=== PATIENT | female | born 1955 | race Caucasian/White ===

== ENCOUNTER → 2017-12-06 07:03 | Outpatient (CLI) | payer OTHER, SELFPAY ==
[2017-12-06 08:48] LABS: Hematocrit 39.4 % (36-46); Hemoglobin 13.5 g/dL (12.0-16.0); Mean Corpuscular HGB Conc 34.2 % (30-36); Mean Corpuscular Hemoglobin 30.9 PG (26-34); Mean Corpuscular Volume 90.3 fL (80-100); Platelet Count 283 X10^3/uL (150-400); Red Blood Cell Count 4.36 X10^6/uL (4.0-5.2); Red Cell Distribution Width 13.9 % (11.6-14.8); White Blood Cell Count 6.5 X10^3/uL (4.5-11.0)
[2017-12-06 09:00] LABS: Alanine Aminotransferase 30 IU/L (9-52); Albumin 4.4 g/dL (3.5-5.0); Albumin Globulin Ratio 1.5 (1.0-2.8); Alkaline Phosphatase 82 U/L (38-126); Aspartate Aminotransferase 23 IU/L (14-36); BUN Creatinine Ratio 21.4 (6-22); Bilirubin Total 0.5 mg/dL (0.2-1.3); Blood Urea Nitrogen 15 mg/dL (7-17); Calcium 9.3 mg/dL (8.4-10.2); Carbon Dioxide 27 mmol/L (22-32); Chloride 106 mmol/L (98-107); Estimated Glomerular Filt Rate > 60.0 mL/min (>60); Glucose 88 mg/dL (80-110); HEMOLYSIS < 15 (0-50); Potassium 3.9 mmol/L (3.4-5.1); Sodium 143 mmol/L (137-145); Total Protein 7.4 g/dL (6.3-8.2)
== END ==
PROVIDERS: Family Provider Family Medicine; PCP Family Medicine; Visit Provider Surgery
DX: I10 Essential (primary) hypertension (principal); E78.5 Hyperlipidemia, unspecified; M54.9 Dorsalgia, unspecified; F32.9 Major depressive disorder, single episode, unspecified
CPT/HCPCS: 36415; 80053; 85027

== ENCOUNTER → 2018-03-13 07:36 | Outpatient (CLI) | payer OTHER, SELFPAY ==
[2018-03-13 08:01] LABS: Hematocrit 38.8 % (36-46); Mean Corpuscular HGB Conc 33.5 % (30-36); Mean Corpuscular Hemoglobin 30.6 PG (26-34); Mean Corpuscular Volume 91.4 fL (80-100); Platelet Count 267 X10^3/uL (150-400); Red Blood Cell Count 4.25 X10^6/uL (4.0-5.2); Red Cell Distribution Width 14.5 % (11.6-14.8); White Blood Cell Count 6.8 X10^3/uL (4.5-11.0)
[2018-03-13 08:27] LABS: HEMOLYSIS < 15 (0-50); Iron 86 ug/dL (37-170)
[2018-03-13 08:31] LABS: Alanine Aminotransferase 50 IU/L (9-52); Albumin 4.5 g/dL (3.5-5.0); Albumin Globulin Ratio 1.5 (1.0-2.8); Alkaline Phosphatase 122 U/L (38-126); Aspartate Aminotransferase 35 IU/L (14-36); Bilirubin Total 0.3 mg/dL (0.2-1.3); Blood Urea Nitrogen 14 mg/dL (7-17); C-Reactive Protein Quant < 0.5 mg/dL (<1.0); Calcium 9.6 mg/dL (8.4-10.2); Carbon Dioxide 23 mmol/L (22-32); Chloride 109 mmol/L (98-107); Cholesterol 156 mg/dL (140-199); Estimated Glomerular Filt Rate > 60.0 mL/min (>60); Globulin 3.1 g/dL (1.7-4.1); Glucose 91 mg/dL (80-110); HDL Cholesterol 50 mg/dL (40-60); HEMOLYSIS < 15 (0-50); LDL Cholesterol Calculated 84 mg/dL (<100); Potassium 4.3 mmol/L (3.4-5.1); Sodium 142 mmol/L (137-145); Total Protein 7.6 g/dL (6.3-8.2); Triglycerides 108 mg/dL (35-150)
[2018-03-13 08:38] LABS: Percent Iron Saturation 25 % (15-50); Total Iron Binding Capacity 346 ug/dL (265-497); Transferrin 281 mg/dL (206-381)
[2018-03-13 08:45] LABS: Vitamin D 25 Hydroxy (D3) 42.7 ng/mL (30.0-100.0)
[2018-03-13 09:04] LABS: Ferritin 22.9 ng/mL (11.1-264)
[2018-03-13 09:34] LABS: Folate 6.8 ng/mL (2.76-20.0); Vitamin B12 679 pg/mL (239-931)
[2018-03-14 15:25] LABS: C Peptide 1.35 ng/mL (0.80-3.85)
[2018-03-15 03:37] LABS: Vitamin A 51 mcg/dL (38-98)
[2018-03-16 18:00] LABS: Vitamin B1 149 nmol/L (78-185)
== END ==
PROVIDERS: Family Provider Family Medicine; PCP Family Medicine; Visit Provider Surgery
DX: K91.2 Postsurgical malabsorption, not elsewhere classified (principal)
CPT/HCPCS: 36415; 80053; 80061; 82306; 82607; 82728; 82746; 83540; 83550; 84425; 84590; 84681; 85027; 86140

== ENCOUNTER → 2018-03-31 07:46 | Outpatient (CLI) | payer OTHER, SELFPAY ==
--- NOTE | 2018-03-31 | DI.MG.S_ITS ---
BILATERAL DIGITAL SCREENING MAMMOGRAM 3D/2D WITH CAD: 03/31/2018 CLINICAL: Routine screening. Family history of breast cancer. Comparison is made to exams dated: 03/30/2017 mammogram, 03/16/2016 mammogram, and 02/26/2015 mammogram - [facility]. There are scattered fibroglandular elements in both breasts. Current study was also evaluated with a Computer Aided Detection (CAD) system. No significant masses, calcifications, or other findings are seen in either breast. There has been no significant interval change. IMPRESSION: NEGATIVE There is no mammographic evidence of malignancy. A 1 year screening mammogram is recommended. This exam was interpreted at Station ID: [id number]. NOTE: For mammograms, a report in lay terms will be sent to the patient. Approximately 15% of breast malignancies will not be visualized mammographically. In the management of a palpable breast mass, a negative mammogram must not discourage biopsy of a clinically suspicious lesion. Electronically Signed By: Yolanda louis/marita:03/31/2018 08:51:59 letter sent: Normal Exam ACR BI-RADS Category 1: Negative 3341F
== END ==
PROVIDERS: Family Provider Family Medicine; PCP Family Medicine; Visit Provider Family Medicine
DX: Z12.31 Encounter for screening mammogram for malignant neoplasm of breast (principal); Z80.3 Family history of malignant neoplasm of breast
CPT/HCPCS: 77063; 77067

== ENCOUNTER → 2019-04-02 10:50 | Outpatient (CLI) | payer OTHER, SELFPAY ==
--- NOTE | 2019-04-02 | DI.MG.S_ITS ---
BILATERAL DIGITAL SCREENING MAMMOGRAM 3D/2D WITH CAD: 04/02/2019 CLINICAL: Routine screening. Family history of breast cancer. Comparison is made to exams dated: 03/31/2018 mammogram, 03/30/2017 mammogram, and 03/16/2016 mammogram - [facility]. There are scattered fibroglandular elements in both breasts. Current study was also evaluated with a Computer Aided Detection (CAD) system. No significant masses, calcifications, or other findings are seen in either breast. There has been no significant interval change. IMPRESSION: NEGATIVE There is no mammographic evidence of malignancy. A 1 year screening mammogram is recommended. This exam was interpreted at Station ID: [id number]. NOTE: For mammograms, a report in lay terms will be sent to the patient. Approximately 15% of breast malignancies will not be visualized mammographically. In the management of a palpable breast mass, a negative mammogram must not discourage biopsy of a clinically suspicious lesion. Electronically Signed By: Tono bourne/marita:04/02/2019 12:05:17 letter sent: Normal Exam ACR BI-RADS Category 1: Negative 3341F
== END ==
PROVIDERS: PCP Student in an Organized Health Care Education/Training Program; Visit Provider Student in an Organized Health Care Education/Training Program
DX: Z12.31 Encounter for screening mammogram for malignant neoplasm of breast (principal); Z80.3 Family history of malignant neoplasm of breast
CPT/HCPCS: 77063; 77067

== ENCOUNTER → 2020-04-03 07:40 | Outpatient (CLI) | payer OTHER, SELFPAY ==
--- NOTE | 2020-04-03 | DI.MG.S_ITS ---
BILATERAL DIGITAL SCREENING MAMMOGRAM 3D/2D WITH CAD: 04/03/2020 CLINICAL: Routine screening. Family history of breast cancer. Comparison is made to exams dated: 04/02/2019 mammogram, 03/31/2018 mammogram, and 03/30/2017 mammogram - [facility]. There are scattered fibroglandular elements in both breasts. Current study was also evaluated with a Computer Aided Detection (CAD) system. No significant masses, calcifications, or other findings are seen in either breast. There has been no significant interval change. IMPRESSION: NEGATIVE There is no mammographic evidence of malignancy. A 1 year screening mammogram is recommended. This exam was interpreted at Station ID: [id number]. NOTE: For mammograms, a report in lay terms will be sent to the patient. Approximately 15% of breast malignancies will not be visualized mammographically. In the management of a palpable breast mass, a negative mammogram must not discourage biopsy of a clinically suspicious lesion. Electronically Signed By: Babak purvis/marita:04/03/2020 08:46:04 letter sent: Normal Exam ACR BI-RADS Category 1: Negative 3341F
== END ==
PROVIDERS: PCP Student in an Organized Health Care Education/Training Program; Referring Provider Student in an Organized Health Care Education/Training Program; Visit Provider Student in an Organized Health Care Education/Training Program
DX: Z12.31 Encounter for screening mammogram for malignant neoplasm of breast (principal); Z80.3 Family history of malignant neoplasm of breast
CPT/HCPCS: 77063; 77067

== ENCOUNTER → 2020-06-05 08:18 | Outpatient (CLI) | payer OTHER, SELFPAY ==
[2020-06-05] MEDS: COVID-19 VACC #1, MRNA(MOD) 100 MCG/0.5 ML VIAL IM (08:24)
== END ==
PROVIDERS: PCP Student in an Organized Health Care Education/Training Program; Visit Provider Internal Medicine
DX: Z23 Encounter for immunization (principal)
CPT/HCPCS: 0011A; 91301

== ENCOUNTER → 2020-07-03 07:54 | Outpatient (CLI) | payer OTHER, SELFPAY ==
[2020-07-03] MEDS: COVID-19 VACC #2, MRNA(MOD) 100 MCG/0.5 ML VIAL IM (07:58)
== END ==
PROVIDERS: PCP Student in an Organized Health Care Education/Training Program; Visit Provider Internal Medicine
DX: Z23 Encounter for immunization (principal)
CPT/HCPCS: 0012A; 91301

== ENCOUNTER → 2020-11-26 14:09 | Outpatient (CLI) | payer OTHER, SELFPAY ==
--- NOTE | 2020-11-26 | DI.RAD.S_ITS ---
PROCEDURE: XR TIBIA FIBULA LT 2V INDICATIONS: Pain in left leg TECHNIQUE: 2 views of the tibia and fibula were acquired. COMPARISON: None. FINDINGS: Bones: Total right knee arthroplasty. Femoral component incompletely visualized. Tibial component unremarkable with no evidence of hardware failure or loosening. No fractures or dislocations. No suspicious bony lesions. Soft tissues: No suspicious soft tissue calcifications or masses. IMPRESSION: No evidence acute bony abnormality of the left tibia and fibula. Dictated by: Dayo Li M.D. on 11/26/2020 at 17:08 Approved by: Dayo Li M.D. on 11/26/2020 at 17:09
--- NOTE | 2020-11-26 | DI.RAD.S_ITS ---
PROCEDURE: XR ANKLE LT MIN 3V INDICATIONS: Pain in left leg TECHNIQUE: 3 views of the ankle were acquired. COMPARISON: None. FINDINGS: Bones: No fractures or dislocations. Ankle mortise is normally aligned. Mild tibiotalar and subtalar joint osteoarthritic changes are seen. Well-defined plantar and dorsal calcaneal enthesophytes are seen. No suspicious bony lesions. Soft tissues: Mild ankle soft tissue swelling is seen. No tibiotalar joint effusion. Achilles tendon appears normal. IMPRESSION: No ankle fracture or dislocation. Ankle and hindfoot joint osteoarthritis. Well-defined calcaneal enthesophytes. Mild ankle soft tissue swelling. Dictated by: Fahad Henriquez M.D. on 11/26/2020 at 15:40 Approved by: Fahad Henriquez M.D. on 11/26/2020 at 15:41
== END ==
PROVIDERS: PCP Student in an Organized Health Care Education/Training Program; Referring Provider Student in an Organized Health Care Education/Training Program; Visit Provider Student in an Organized Health Care Education/Training Program
DX: M79.605 Pain in left leg (principal); M25.872 Other specified joint disorders, left ankle and foot; M19.072 Primary osteoarthritis, left ankle and foot
CPT/HCPCS: 73590; 73610

== ENCOUNTER → 2021-03-28 08:04 | Outpatient (CLI) | payer OTHER, SELFPAY ==
--- NOTE | 2021-03-28 08:25 | DI.MG.S_ITS ---
Procedure: MM screening mammo BI BILATERAL DIGITAL SCREENING MAMMOGRAM 3D/2D WITH CAD: 03/28/2021 CLINICAL: Routine screening. Family history of breast cancer. Comparison is made to exams dated: 04/03/2020 mammogram, 04/02/2019 mammogram, and 03/31/2018 mammogram - . There are scattered fibroglandular elements in both breasts. Current study was also evaluated with a Computer Aided Detection (CAD) system. No significant masses, calcifications, or other findings are seen in either breast. There has been no significant interval change. IMPRESSION: NEGATIVE There is no mammographic evidence of malignancy. A 1 year screening mammogram is recommended. This exam was interpreted at Station ID: [id number]. NOTE: For mammograms, a report in lay terms will be sent to the patient. Approximately 15% of breast malignancies will not be visualized mammographically. In the management of a palpable breast mass, a negative mammogram must not discourage biopsy of a clinically suspicious lesion. Electronically Signed By: Babak purvis/marita:03/30/2021 08:26:28 letter sent: Normal Exam ACR BI-RADS Category 1: Negative 3341F
== END ==
PROVIDERS: PCP Student in an Organized Health Care Education/Training Program; Referring Provider Student in an Organized Health Care Education/Training Program; Visit Provider Student in an Organized Health Care Education/Training Program
DX: Z12.31 Encounter for screening mammogram for malignant neoplasm of breast (principal); Z80.3 Family history of malignant neoplasm of breast
CPT/HCPCS: 77063; 77067

== ENCOUNTER → 2022-03-31 07:25 | Outpatient (CLI) | payer OTHER, SELFPAY ==
--- NOTE | 2022-03-31 | DI.MG.S_ITS ---
BILATERAL DIGITAL SCREENING MAMMOGRAM 3D/2D WITH CAD: 03/31/2022 CLINICAL: Routine screening. Family history of breast cancer. Comparison is made to exams dated: 03/28/2021 mammogram, 04/03/2020 mammogram, 04/02/2019 mammogram, and 03/31/2018 mammogram - [facility]. There are scattered areas of fibroglandular density in both breasts (category b / 25%-50% glandular tissue). Current study was also evaluated with a Computer Aided Detection (CAD) system. There are benign post operative findings in the left breast. No significant masses, calcifications, or other findings are seen in either breast. There has been no significant interval change. IMPRESSION: BENIGN There is no mammographic evidence of malignancy. A 1 year screening mammogram is recommended. Based on the Tyrer Cuzick model (a risk assessment model) the patient's lifetime risk is 6.8% and her 10 year risk is 3.1%. According to the ACR, ACS, and NCCN guidelines, an annual breast MRI exam along with mammogram is recommended if the patient's lifetime risk is 20% or greater. This exam was interpreted at Station ID: [id number]. NOTE: For mammograms, a report in lay terms will be sent to the patient. Approximately 15% of breast malignancies will not be visualized mammographically. In the management of a palpable breast mass, a negative mammogram must not discourage biopsy of a clinically suspicious lesion. Electronically Signed By: Bao lopez/marita:03/31/2022 08:11:20 letter sent: Normal Exam ACR BI-RADS Category 2: Benign Finding(s) 3342F
== END ==
PROVIDERS: PCP Family Medicine; Referring Provider Family Medicine; Visit Provider Family Medicine
DX: Z12.31 Encounter for screening mammogram for malignant neoplasm of breast (principal); Z80.3 Family history of malignant neoplasm of breast
CPT/HCPCS: 77063; 77067

== ENCOUNTER → 2022-05-10 11:03 | Outpatient (CLI) | payer OTHER, SELFPAY ==
[2022-05-10 11:50] LABS: Add Manual Diff / Slide Review NO; Basophils Absolute Auto 0 /uL (0-100); Basophils Percent Auto 0.7 % (0-2); Eosinophils Absolute Auto 0 /uL (0-450); Eosinophils Percent Auto 0.5 % (2-4); Hematocrit 27.2 % (36-46); Hemoglobin 8.7 g/dL (12.0-16.0); Lymphocytes Absolute Auto 2000 /uL (1100-4500); Lymphocytes Percent Auto 36.7 % (25-40); Mean Corpuscular Hemoglobin 26.6 PG (26-34); Mean Corpuscular Volume 83.2 fL (80-100); Monocytes Absolute Auto 300 /uL (0-900); Monocytes Percent Auto 5.8 % (3-14); Neutrophils Absolute Auto 3000 /uL (1500-7000); Neutrophils Percent Auto 56.3 % (50-75); Platelet Count 257 X10^3/uL (150-400); Red Blood Cell Count 3.27 X10^6/uL (4.0-5.2); Red Cell Distribution Width 15.5 % (11.6-14.8); White Blood Cell Count 5.4 X10^3/uL (4.5-11.0)
[2022-05-10 12:03] LABS: HEMOLYSIS < 15 (0-50); Iron 37 ug/dL (37-170)
[2022-05-10 12:04] LABS: Alanine Aminotransferase 53 IU/L (<35); Albumin 4.4 g/dL (3.5-5.0); Albumin Globulin Ratio 1.4 (1.0-2.8); Alkaline Phosphatase 108 U/L (38-126); Aspartate Aminotransferase 41 IU/L (14-36); BUN Creatinine Ratio 15.2 (6-22); Bilirubin Total 0.5 mg/dL (0.2-1.3); Blood Urea Nitrogen 10 mg/dL (7-17); Calcium 8.6 mg/dL (8.4-10.2); Carbon Dioxide 25 mmol/L (22-32); Chloride 104 mmol/L (98-107); Cholesterol 200 mg/dL (140-199); Estimated Glomerular Filt Rate > 60 mL/min (>60); Globulin 3.1 g/dL (1.7-4.1); Glucose 82 mg/dL (80-110); HDL Cholesterol 71 mg/dL (40-60); HEMOLYSIS < 15 (0-50); LDL Cholesterol Calculated 114 mg/dL (<100); Potassium 3.8 mmol/L (3.4-5.1); Sodium 138 mmol/L (137-145); Total Protein 7.5 g/dL (6.3-8.2); Triglycerides 77 mg/dL (35-150)
[2022-05-10 12:15] LABS: Percent Iron Saturation 7 % (15-50); Total Iron Binding Capacity 553 ug/dL (265-497); Transferrin 381 mg/dL (206-381)
[2022-05-10 12:21] LABS: Vitamin D 25 Hydroxy (D3) 14.3 ng/mL (30.0-100.0)
[2022-05-10 12:22] LABS: Free T3, Triiodothyronine Free 3.27 pg/mL (2.77-5.27); Free T4, Direct Thyroxine 1.32 ng/dL (0.78-2.19)
[2022-05-10 12:36] LABS: Thyroid Stimulating Hormone 1.11 uIU/mL (0.47-4.68)
[2022-05-10 13:11] LABS: Folate 12.9 ng/mL (2.76-20.0); Vitamin B12 618 pg/mL (239-931)
[2022-05-10 16:46] LABS: HIV 1 & 2 Ab/Ag 4th Gen Combo NEGATIVE (NEGATIVE); Hep C Virus Ab w/Reflex Quant NEGATIVE s/c (NEGATIVE)
[2022-05-11 22:32] LABS: Zinc 62 ug/dL (44-115)
[2022-05-13 13:47] LABS: Calcium 9.1 mg/dL (8.7-10.3); Parathyroid Hormone, Intact 109 pg/mL (15-65)
[2022-05-13 15:28] LABS: Selenium 94 ug/L (93-198)
[2022-05-14 18:59] LABS: Vitamin B1 139.1 nmol/L (66.5-200.0)
[2022-05-19 18:12] LABS: Alpha-Tocopherol 12.8 mg/L (9.0-29.0); Gamma-Tocopherol 0.2 mg/L (0.5-4.9); Vitamin A 42.6 ug/dL (22.0-69.5)
== END ==
PROVIDERS: PCP Nurse Practitioner; Referring Provider Nurse Practitioner; Visit Provider Nurse Practitioner
DX: Z00.00 Encounter for general adult medical examination without abnormal findings (principal); Z98.84 Bariatric surgery status; Z11.59 Encounter for screening for other viral diseases; Z11.4 Encounter for screening for human immunodeficiency virus [HIV]
CPT/HCPCS: 36415; 80053; 80061; 82306; 82310; 82525; 82607; 82746; 83540; 83550; 83970; 84255; 84425; 84439; 84443; 84446; 84481; 84590; 84630; 85025; 86803; 87389

== ENCOUNTER 2022-05-28 10:55 | Day surgery (SDC) | payer OTHER, SELFPAY ==
--- NOTE | 2022-05-28 | PATH_ITS ---
[facility] Accession Number: [id number] No. of containers..01 Tissue . 01 Material submitted: . gastrointestinal site - GASTRIC RANDOM BIOPSY . 01 Clinical history: . R/O H. PYLORI . 01 Diagnosis: Gastric, Biopsy: Gastric mucosa with mild chronic inflammation. No Helicobacter pylori organisms identified on immunohistochemical evaluation. No intestinal metaplasia, dysplasia, or malignancy identified. . MRV 06/01/2022 1354 Local . 01 Electronically signed: . Janine Vo MD, Pathologist NPI- [id number] . 01 Gross description: . GASTRIC RANDOM BIOPSY: Received in formalin is 1 fragment(s) of nicholson, soft tissue measuring 0.3 x 0.3 x 0.2 cm submitted entirely in 1 cassette(s) /KARINA 05/31/20222022 Local . 01 Microscopic: . An immunohistochemical stain was performed to evaluate for Helicobacter organisms and is negative. The control stain showed appropriate reactivity. . * This test was developed and its performance characteristics determined by [facility]. It has not been cleared or approved by the U.S. Food and Drug Administration. The FDA has determined that such clearance or approval is not necessary. This test is used for clinical purposes. It should not be regarded as investigational or for research. . 01 Pathologist provided ICD-10: K29.70 . 01 CPT . 458387, E28823 Specimen Comment: A courtesy copy of this report has been sent to [facility]ology Performed at: 01 [facility] [address] [place] [address], [place], [place] [id number] MD Tono Vergara MD Phone: [phone]
[2022-05-28] MEDS: LACTATED RINGERS 1,000 ML 120 ML IV ×2 (11:31→14:48)
[2022-05-28 11:48] VITALS: BP 133/90; PULSE 83; RESP 16; TEMP 36.5; O2SAT 96; BMI 35.5
[2022-05-28 12:12] VITALS: BMI 35.5
--- NOTE | 2022-05-28 12:56 | PM.HP.1 ---
History of Present Illness History of Present Illness Date Patient Seen: 05/28/22 Chief complaint: EGD/Colonoscopy Narrative: Please see H and P dated from my office 04/20/2022. Patient states that there have not been significant changes since that time. She presents for EGD and colonoscopy because of anemia. She has had a colonoscopy in the past. Still feeling tired and also getting vitamin infusions as well. Patient History Medical History (Updated 05/20/22 @ 16:14 by DOTTY Barboza) Arthritis (~2007) Elevated parathyroid hormone Foot pain (~2019) Surgical History Anesthesia History of cholecystectomy History of gastric bypass History of knee surgery S/P laparoscopic sleeve gastrectomy Family & Social History Family History Father No problems noted. Brother Cancer Brother Diabetes mellitus History of heart disease Hypertension Hyperlipidemia Mental health problem Grandfather Kidney disorder Grandmother No problems noted. Social History: household members spouse Tobacco & Substance use: Smoking Status Former smoker alcohol intake current alcohol intake frequency holiday/special occasion Substance Use Type does not use Meds Home Medications and Allergies Home Medications Medication Instructions Recorded Confirmed Type alprazolam 0.5 mg tablet 0.5 mg PO BID PRN panic attacks 05/10/22 05/28/22 Rx #20 tabs calcium carbonate 600 mg calcium 600 mg PO DAILY 05/10/22 05/28/22 History (1,500 mg) tablet (Calcium) doxepin 100 mg capsule 150 mg PO HS #0 caps 05/10/22 05/28/22 History gabapentin 300 mg capsule 600 mg PO BID 05/10/22 05/28/22 History vitamin B complex (B 1 tab PO DAILY 05/10/22 05/28/22 History Complex-Vitamin B12 tablet) ferumoxytol 510 mg/17 mL (30 510 mg (17 mL) IV Q3D 2 doses #17 05/11/22 05/28/22 Rx mg/mL) intravenous solution mL (Feraheme) cholecalciferol (vitamin D3) 50 50 mcg PO DAILY #30 caps 05/18/22 05/28/22 Rx mcg (2,000 unit) capsule escitalopram oxalate 20 mg tablet 40 mg PO QDAY #180 tabs 05/19/22 05/28/22 Rx (Lexapro) semaglutide 1 mg/dose (4 mg/3 mL) 1 mg (0.75 mL) SUBCUT QWEEK #6 mL 05/19/22 05/28/22 Rx subcutaneous pen injector (Ozempic) Allergies Allergy/AdvReac Type Severity Reaction Status Date / Time aspirin AdvReac Severe GI BLEED Verified 05/28/22 11:43 codeine AdvReac Intermediate GI BLEED Verified 05/28/22 11:43 naproxen AdvReac Intermediate GI BLEED Verified 05/28/22 11:43 Exam Vital Signs (past 8 hours): - 05/28/22 11:48 Temperature 97.7 F Pulse Rate 83 Respiratory Rate 16 Blood Pressure 133/90 Pulse Oximetry 96 Oxygen Delivery Method Room Air Oxygen Delivery Method Room Air Const General: cooperative, healthy appearing and comfortable HENMT Head: normal to inspection Eyes General: appearance normal, both eyes and all related structures Resp Effort & Inspection: normal respiratory effort and able to speak in complete sentences GI Palpation: soft and No tender Assessment & Plan Assessment and plan (1) Anemia: Qualifiers: Anemia type: iron deficiency Iron deficiency anemia type: unspecified iron deficiency Qualified Code(s): D50.9 - Iron deficiency anemia, unspecified Status: Acute (2) History of gastric bypass: Status: Acute Assessment & Plan narrative: I reiterated the risks benefits and alternatives of EGD/colonoscopy that was discussed in the office. Patient understands these risks benefits and alternatives and would like to proceed. I did discuss an being unable to view the gastric remnant that was bypassed and briefly went into some procedures that are possible to evaluate this portion of the GI tract that has been excluded with a gastric bypass. These include laparoscopic assisted endoscopy or an endoscopic ultrasound assisted entry into that pouch.(EUS-directed transgastric approach aka EGDE procedure)
[2022-05-28 14:35] VITALS: BP 116/74; PULSE 84; RESP 15; TEMP 36.1; O2SAT 96
[2022-05-28 14:40] VITALS: BP 87/69; PULSE 86; RESP 14; O2SAT 97
[2022-05-28 14:43] VITALS: BP 120/74; PULSE 79; RESP 17; O2SAT 96
[2022-05-28 14:45] VITALS: BP 126/72; PULSE 78; RESP 14; O2SAT 99
--- NOTE | 2022-05-28 14:51 | SUR.PHASEI ---
Patient with dry cough S/P egd but no difficulty swallowing juice; lungs cta; abdomen soft and non-distended. VSS.
[2022-05-28 14:56] VITALS: BP 137/87; PULSE 73; RESP 24; O2SAT 98
--- NOTE | 2022-05-28 19:59 | PM.OP.EC ---
Operative Date/Time/Diagnoses Date of procedure: 05/28/22 Pre-op diagnosis: Anemia Post-op diagnosis: same Procedure & Clinicians Study performed: EGD and biopsies, colonoscopy Same procedure as scheduled: Yes Indications: Anemia Surgeon: Cheryl García Procedure Notes Procedure in detail: Patient was taken to the endoscopy suite and placed supine on the operating room table. A time-out was performed. With the help of anesthesiology provider conscious sedation was induced. Bite block was placed. EGD scope was introduced into the mouth and easily placed into the esophagus. This was advanced into the stomach. A small pouch of remaining stomach was seen. The scope was advanced towards the pylorus. There was some mild possible erythema in this area and a gastric biopsy was obtained. The scope was then advanced into the duodenum. The scope was advanced until the junction of the Tawanna limb with the biliopancreatic limb was seen. A photograph was obtained. There was no evidence of bleeding in any of these areas. Next attention was turned to the colonoscopy. A digital rectal exam was performed external hemorrhoids were appreciated. The colonoscope was introduced into the anal canal and advanced through to the cecum. There were some areas where the prep was poor and the [place] bowel prep score was between a 1 and 2. I do think it was an adequate exam for the purpose of working up anemia and no obvious cause of anemia was seen. The withdrawal time from the cecum was 14 minutes. Photographs of the appendiceal orifice and retroflexion were obtained. There were a few scattered diverticula but no polyps were appreciated. Specimen(s): none sent Complications: none Impression: No obvious source of anemia is identified. No polyps were seen.
== END 2022-05-28 15:05 | disposition home or self-care (01) ==
PROVIDERS: PCP Nurse Practitioner; Referring Provider Surgery; Visit Provider Surgery
PROC: 0DJ08ZZ Inspection of Upper Intestinal Tract, Via Natural or Artificial Opening Endoscopic (ICD-10-PCS; CPT 43235; principal; 2022-05-28 12:15)
PROC: 0DJD8ZZ Inspection of Lower Intestinal Tract, Via Natural or Artificial Opening Endoscopic (ICD-10-PCS; CPT 45378; 2022-05-28 12:15)
DX: D50.9 Iron deficiency anemia, unspecified (principal); Z98.84 Bariatric surgery status; K57.30 Diverticulosis of large intestine without perforation or abscess without bleeding
CPT/HCPCS: 45378; 43239; 43235; J2704

== ENCOUNTER → 2022-06-29 07:11 | Outpatient (CLI) | payer OTHER, SELFPAY ==
[2022-06-29 08:31] LABS: Add Manual Diff / Slide Review NO; Basophils Absolute Auto 0 /uL (0-100); Basophils Percent Auto 0.8 % (0-2); Eosinophils Absolute Auto 100 /uL (0-450); Eosinophils Percent Auto 1.5 % (2-4); Hematocrit 34.6 % (36-46); Hemoglobin 11.2 g/dL (12.0-16.0); Lymphocytes Absolute Auto 1600 /uL (1100-4500); Mean Corpuscular HGB Conc 32.4 % (30-36); Mean Corpuscular Volume 86.5 fL (80-100); Monocytes Absolute Auto 200 /uL (0-900); Monocytes Percent Auto 5.2 % (3-14); Neutrophils Absolute Auto 2600 /uL (1500-7000); Neutrophils Percent Auto 56.5 % (50-75); Platelet Count 257 X10^3/uL (150-400); Red Cell Distribution Width 23.1 % (11.6-14.8); White Blood Cell Count 4.5 X10^3/uL (4.5-11.0)
[2022-06-29 08:45] LABS: Anisocytosis 1+; Poikilocytosis 1+
[2022-06-29 08:56] LABS: HEMOLYSIS < 15 (0-50); Iron 102 ug/dL (37-170)
[2022-06-29 09:10] LABS: Percent Iron Saturation 30 % (15-50); Total Iron Binding Capacity 338 ug/dL (265-497); Transferrin 251 mg/dL (206-381)
[2022-07-01 09:48] LABS: Calcium 8.8 mg/dL (8.7-10.3); Parathyroid Hormone, Intact 86 pg/mL (15-65)
== END ==
PROVIDERS: PCP Nurse Practitioner; Referring Provider Nurse Practitioner; Visit Provider Nurse Practitioner
DX: Z01.83 Encounter for blood typing (principal); E34.9 Endocrine disorder, unspecified; D50.9 Iron deficiency anemia, unspecified
CPT/HCPCS: 36415; 82310; 83540; 83550; 83970; 85025; 86900; 86901

== ENCOUNTER → 2022-08-10 07:06 | Outpatient (CLI) | payer OTHER, SELFPAY ==
[2022-08-10 08:21] LABS: Add Manual Diff / Slide Review NO; Basophils Absolute Auto 0 /uL (0-100); Basophils Percent Auto 0.6 % (0-2); Eosinophils Absolute Auto 0 /uL (0-450); Eosinophils Percent Auto 0.8 % (2-4); Hematocrit 37.1 % (36-46); Hemoglobin 12.4 g/dL (12.0-16.0); Lymphocytes Absolute Auto 2000 /uL (1100-4500); Lymphocytes Percent Auto 34.1 % (25-40); Mean Corpuscular HGB Conc 33.5 % (30-36); Mean Corpuscular Hemoglobin 29.8 PG (26-34); Mean Corpuscular Volume 88.9 fL (80-100); Monocytes Absolute Auto 300 /uL (0-900); Monocytes Percent Auto 5.1 % (3-14); Neutrophils Absolute Auto 3400 /uL (1500-7000); Neutrophils Percent Auto 59.4 % (50-75); Platelet Count 226 X10^3/uL (150-400); Red Blood Cell Count 4.17 X10^6/uL (4.0-5.2); Red Cell Distribution Width 21.4 % (11.6-14.8); White Blood Cell Count 5.7 X10^3/uL (4.5-11.0)
[2022-08-10 08:38] LABS: Anisocytosis 1+
[2022-08-10 08:41] LABS: Alanine Aminotransferase 73 IU/L (<35); Albumin 4.2 g/dL (3.5-5.0); Albumin Globulin Ratio 1.7 (1.0-2.8); Alkaline Phosphatase 100 U/L (38-126); Aspartate Aminotransferase 43 IU/L (14-36); BUN Creatinine Ratio 21.8 (6-22); Bilirubin Total 0.3 mg/dL (0.2-1.3); Blood Urea Nitrogen 17 mg/dL (7-17); Calcium 8.8 mg/dL (8.4-10.2); Carbon Dioxide 23 mmol/L (22-32); Chloride 108 mmol/L (98-107); Estimated Glomerular Filt Rate > 60 mL/min (>60); Globulin 2.5 g/dL (1.7-4.1); Glucose 85 mg/dL (80-110); HEMOLYSIS < 15 (0-50); Potassium 4.4 mmol/L (3.4-5.1); Sodium 139 mmol/L (137-145); Total Protein 6.7 g/dL (6.3-8.2)
[2022-08-10 13:06] LABS: HEMOLYSIS < 15 (0-50); Iron 66 ug/dL (37-170)
[2022-08-10 13:17] LABS: Transferrin 275 mg/dL (206-381)
[2022-08-10 13:24] LABS: Percent Iron Saturation 18 % (15-50); Total Iron Binding Capacity 366 ug/dL (265-497)
[2022-08-13 08:44] LABS: Calcium 8.9 mg/dL (8.7-10.3); Parathyroid Hormone, Intact 99 pg/mL (15-65)
== END ==
PROVIDERS: PCP Nurse Practitioner; Referring Provider Nurse Practitioner; Visit Provider Nurse Practitioner
DX: D50.9 Iron deficiency anemia, unspecified (principal); Z98.84 Bariatric surgery status; E34.9 Endocrine disorder, unspecified
CPT/HCPCS: 36415; 80053; 82310; 83540; 83550; 83970; 85025

== ENCOUNTER → 2022-08-12 06:39 | Outpatient (CLI) | payer MEDICARE, SELFPAY ==
--- NOTE | 2022-08-12 06:40 | DI.US.S_ITS ---
PROCEDURE: US ABDOMEN LIMITED INDICATIONS: ELEVATED LFTS TECHNIQUE: Real-time focused scanning was performed of the abdomen, with image documentation. COMPARISON: None. FINDINGS: Liver is normal in size and echotexture. No discrete hepatic lesion is seen. Gallbladder is surgically absent. No abnormality is seen within gallbladder fossa. There is no intrahepatic biliary ductal dilatation. Common bile duct measures up to 8.9 mm in diameter and is within normal limits. Pancreas is not visualized due to overlying bowel gas. IMPRESSION: No abnormality is seen in right upper quadrant abdomen. Dictated by: Fahad Henriquez M.D. on 08/12/2022 at 9:11 Approved by: Fahad Henriquez M.D. on 08/12/2022 at 9:12
== END ==
PROVIDERS: PCP Nurse Practitioner; Referring Provider Nurse Practitioner; Visit Provider Nurse Practitioner
DX: D50.9 Iron deficiency anemia, unspecified (principal); R79.89 Other specified abnormal findings of blood chemistry; Z98.84 Bariatric surgery status
CPT/HCPCS: 76705

== ENCOUNTER → 2022-11-11 15:46 | Outpatient (CLI) | payer MEDICARE, SELFPAY | PROVIDERS: PCP Nurse Practitioner; Visit Provider Student in an Organized Health Care Education/Training Program | DX: N39.0 Urinary tract infection, site not specified (principal) | CPT/HCPCS: 87077; 87086; 87186 ==

== ENCOUNTER → 2023-02-03 07:02 | Outpatient (CLI) | payer MEDICARE, SELFPAY ==
[2023-02-03 08:17] LABS: Add Manual Diff / Slide Review NO; Basophils Absolute Auto 0 /uL (0-100); Basophils Percent Auto 0.6 % (0-2); Eosinophils Absolute Auto 0 /uL (0-450); Hematocrit 36.4 % (36-46); Hemoglobin 12.2 g/dL (12.0-16.0); Lymphocytes Absolute Auto 1700 /uL (1100-4500); Lymphocytes Percent Auto 35.3 % (25-40); Mean Corpuscular HGB Conc 33.5 % (30-36); Mean Corpuscular Volume 95.6 fL (80-100); Monocytes Absolute Auto 200 /uL (0-900); Monocytes Percent Auto 4.9 % (3-14); Neutrophils Absolute Auto 2700 /uL (1500-7000); Neutrophils Percent Auto 58.2 % (50-75); Platelet Count 218 X10^3/uL (150-400); Red Blood Cell Count 3.81 X10^6/uL (4.0-5.2); Red Cell Distribution Width 13.7 % (11.6-14.8); White Blood Cell Count 4.7 X10^3/uL (4.5-11.0)
[2023-02-03 08:34] LABS: HEMOLYSIS < 15 (0-50); Iron 102 ug/dL (37-170)
[2023-02-03 08:41] LABS: Alanine Aminotransferase 52 IU/L (<35); Albumin 3.7 g/dL (3.5-5.0); Albumin Globulin Ratio 1.5 (1.0-2.8); Alkaline Phosphatase 95 U/L (38-126); Aspartate Aminotransferase 45 IU/L (14-36); Bilirubin Total 0.6 mg/dL (0.2-1.3); Blood Urea Nitrogen 13 mg/dL (7-17); Carbon Dioxide 23 mmol/L (22-32); Chloride 110 mmol/L (98-107); Estimated Glomerular Filt Rate > 60 mL/min (>60); Globulin 2.5 g/dL (1.7-4.1); Glucose 79 mg/dL (80-110); HEMOLYSIS < 15 (0-50); Sodium 138 mmol/L (137-145); Total Protein 6.2 g/dL (6.3-8.2)
[2023-02-03 08:46] LABS: Total Iron Binding Capacity 313 ug/dL (265-497); Transferrin 258 mg/dL (206-381)
[2023-02-03 09:09] LABS: Ferritin 28 ng/mL (11-264)
[2023-02-03 10:29] LABS: Percent Iron Saturation 33 % (15-50)
== END ==
PROVIDERS: PCP Nurse Practitioner; Referring Provider Family Medicine; Visit Provider Family Medicine
DX: D64.9 Anemia, unspecified (principal)
CPT/HCPCS: 36415; 80053; 82728; 83540; 83550; 85025

== ENCOUNTER → 2023-03-29 07:01 | Outpatient (CLI) | payer MEDICARE, SELFPAY ==
[2023-03-29 08:48] LABS: BUN Creatinine Ratio 23.3 (6-22); Blood Urea Nitrogen 14 mg/dL (7-17); Calcium 9.2 mg/dL (8.4-10.2); Carbon Dioxide 22 mmol/L (22-32); Chloride 107 mmol/L (98-107); Estimated Glomerular Filt Rate > 60 mL/min (>60); Glucose 83 mg/dL (80-110); HEMOLYSIS < 15 (0-50); Potassium 4.2 mmol/L (3.4-5.1); Sodium 139 mmol/L (137-145)
[2023-03-29 09:00] LABS: Vitamin D 25 Hydroxy (D3) 43.2 ng/mL (30.0-100.0)
[2023-03-31 09:25] LABS: Parathyroid Hormone Int 83 pg/mL (15-65)
== END ==
PROVIDERS: PCP Nurse Practitioner; Referring Provider Internal Medicine Endocrinology, Diabetes & Metabolism; Visit Provider Internal Medicine Endocrinology, Diabetes & Metabolism
DX: E21.3 Hyperparathyroidism, unspecified (principal)
CPT/HCPCS: 36415; 80048; 82306; 83970

== ENCOUNTER → 2023-04-01 08:25 | Outpatient (CLI) | payer MEDICARE, SELFPAY ==
[2023-04-01 11:00] LABS: Calcium 24 Hour Urine 29 mg/day (100-300); Calcium Urine Random 2.4 mg/dL; Collection Time Urine 24 Hours; Total Volume Urine 1200 mL
[2023-04-01 11:03] LABS: Collection Time Urine 24 Hours; Creatinine 24 Hour Urine 860 mg/day (800-1800); Creatinine Urine Random 71.7 mg/dL; Total Volume Urine 1200 mL
== END ==
PROVIDERS: PCP Nurse Practitioner; Referring Provider Internal Medicine Endocrinology, Diabetes & Metabolism; Visit Provider Internal Medicine Endocrinology, Diabetes & Metabolism
DX: E21.3 Hyperparathyroidism, unspecified (principal)
CPT/HCPCS: 82340; 82570

== ENCOUNTER → 2023-05-12 06:44 | Outpatient (CLI) | payer MEDICARE, SELFPAY ==
[2023-05-12 07:37] LABS: Add Manual Diff / Slide Review NO; Basophils Absolute Auto 0 /uL (0-100); Basophils Percent Auto 0.6 % (0-2); Eosinophils Absolute Auto 0 /uL (0-450); Eosinophils Percent Auto 0.9 % (2-4); Hematocrit 36.3 % (36-46); Hemoglobin 12.3 g/dL (12.0-16.0); Lymphocytes Absolute Auto 1900 /uL (1100-4500); Lymphocytes Percent Auto 40.2 % (25-40); Mean Corpuscular HGB Conc 33.9 % (30-36); Mean Corpuscular Hemoglobin 32.5 PG (26-34); Mean Corpuscular Volume 95.9 fL (80-100); Monocytes Absolute Auto 200 /uL (0-900); Neutrophils Absolute Auto 2500 /uL (1500-7000); Neutrophils Percent Auto 53.3 % (50-75); Platelet Count 209 X10^3/uL (150-400); Red Blood Cell Count 3.78 X10^6/uL (4.0-5.2); Red Cell Distribution Width 13.9 % (11.6-14.8); White Blood Cell Count 4.6 X10^3/uL (4.5-11.0)
[2023-05-12 07:58] LABS: HEMOLYSIS < 15 (0-50); Iron 119 ug/dL (37-170)
[2023-05-12 08:03] LABS: Alanine Aminotransferase 53 IU/L (<35); Albumin Globulin Ratio 1.5 (1.0-2.8); Alkaline Phosphatase 78 U/L (38-126); Aspartate Aminotransferase 41 IU/L (14-36); Bilirubin Total 0.7 mg/dL (0.2-1.3); Blood Urea Nitrogen 13 mg/dL (7-17); Calcium 8.9 mg/dL (8.4-10.2); Carbon Dioxide 25 mmol/L (22-32); Chloride 111 mmol/L (98-107); Estimated Glomerular Filt Rate > 60 mL/min (>60); Globulin 2.6 g/dL (1.7-4.1); Glucose 84 mg/dL (80-110); HEMOLYSIS < 15 (0-50); Potassium 4.3 mmol/L (3.4-5.1); Sodium 140 mmol/L (137-145); Total Protein 6.6 g/dL (6.3-8.2)
[2023-05-12 08:15] LABS: Free T3, Triiodothyronine Free 3.08 pg/mL (2.77-5.27); Free T4, Direct Thyroxine 1.15 ng/dL (0.78-2.19); Vitamin D 25 Hydroxy (D3) 41.9 ng/mL (30.0-100.0)
[2023-05-12 08:19] LABS: Percent Iron Saturation 40 % (15-50); Total Iron Binding Capacity 297 ug/dL (265-497)
[2023-05-12 08:29] LABS: Thyroid Stimulating Hormone 1.26 uIU/mL (0.47-4.68)
[2023-05-12 09:03] LABS: Vitamin B12 983 pg/mL (239-931)
[2023-05-12 22:35] LABS: Transferrin 242 mg/dL (206-381)
== END ==
PROVIDERS: PCP Nurse Practitioner; Referring Provider Nurse Practitioner; Visit Provider Nurse Practitioner
DX: D64.9 Anemia, unspecified (principal); E55.9 Vitamin D deficiency, unspecified; Z98.84 Bariatric surgery status
CPT/HCPCS: 36415; 80053; 82306; 82607; 83540; 83550; 84439; 84443; 84481; 85025

== ENCOUNTER → 2023-05-16 11:04 | Outpatient (CLI) | payer MEDICARE, SELFPAY ==
--- NOTE | 2023-05-16 11:05 | DI.MG.S_ITS ---
BILATERAL DIGITAL SCREENING MAMMOGRAM 3D/2D WITH CAD: 05/16/2023 CLINICAL: Routine screening. Family history of breast cancer. Comparison is made to exams dated: 03/31/2022 mammogram, 03/28/2021 mammogram, and 04/03/2020 mammogram - [facility]. There are scattered areas of fibroglandular density in both breasts (category b / 25%-50% glandular tissue). Current study was also evaluated with a Computer Aided Detection (CAD) system. There are benign vascular calcifications in both breasts. There also are benign post operative findings in the left breast. No significant masses, calcifications, or other findings are seen in either breast. There has been no significant interval change. IMPRESSION: BENIGN There is no mammographic evidence of malignancy. A 1 year screening mammogram is recommended. Based on the Tyrer Cuzick model (a risk assessment model) the patient's lifetime risk is 6.5% and her 10 year risk is 3.1%. According to the ACR, ACS, and NCCN guidelines, an annual breast MRI exam along with mammogram is recommended if the patient's lifetime risk is 20% or greater. This exam was interpreted at Station ID: [id number]. NOTE: For mammograms, a report in lay terms will be sent to the patient. Approximately 15% of breast malignancies will not be visualized mammographically. In the management of a palpable breast mass, a negative mammogram must not discourage biopsy of a clinically suspicious lesion. Electronically Signed By: Yolanda louis/marita:05/16/2023 12:08:20 letter sent: Normal Exam ACR BI-RADS Category 2: Benign Finding(s) 3342F
== END ==
LOC: MAMMO 11:04
PROVIDERS: PCP Nurse Practitioner; Referring Provider Nurse Practitioner; Visit Provider Nurse Practitioner
DX: Z12.31 Encounter for screening mammogram for malignant neoplasm of breast (principal); Z80.3 Family history of malignant neoplasm of breast; R92.323 Mammographic fibroglandular density, bilateral breasts
CPT/HCPCS: 77063; 77067

== ENCOUNTER → 2023-06-17 06:42 | Outpatient (CLI) | payer MEDICARE, SELFPAY ==
[2023-06-17 08:45] LABS: BUN Creatinine Ratio 16.9 (6-22); Blood Urea Nitrogen 11 mg/dL (7-17); Calcium 8.9 mg/dL (8.4-10.2); Carbon Dioxide 26 mmol/L (22-32); Chloride 109 mmol/L (98-107); Estimated Glomerular Filt Rate > 60 mL/min (>60); Glucose 84 mg/dL (80-110); HEMOLYSIS < 15 (0-50); Potassium 4.1 mmol/L (3.4-5.1); Sodium 140 mmol/L (137-145)
[2023-06-17 08:48] LABS: Vitamin D 25 Hydroxy (D3) 51.8 ng/mL (30.0-100.0)
[2023-06-19 09:07] LABS: Parathyroid Hormone Int 74 pg/mL (15-65)
== END ==
LOC: LAB 06:43
PROVIDERS: PCP Nurse Practitioner; Referring Provider Internal Medicine Endocrinology, Diabetes & Metabolism; Visit Provider Internal Medicine Endocrinology, Diabetes & Metabolism
DX: E21.3 Hyperparathyroidism, unspecified (principal)
CPT/HCPCS: 36415; 80048; 82306; 83970

== ENCOUNTER → 2023-10-24 07:25 | Outpatient (CLI) | payer MEDICARE, SELFPAY ==
[2023-10-24 09:00] LABS: Add Manual Diff / Slide Review NO; Basophils Absolute Auto 0 /uL (0-100); Basophils Percent Auto 0.6 % (0-2); Eosinophils Absolute Auto 0 /uL (0-450); Eosinophils Percent Auto 0.7 % (2-4); Hematocrit 36.8 % (36-46); Hemoglobin 12.4 g/dL (12.0-16.0); Lymphocytes Absolute Auto 1600 /uL (1100-4500); Lymphocytes Percent Auto 39.2 % (25-40); Mean Corpuscular HGB Conc 33.8 % (30-36); Mean Corpuscular Hemoglobin 32.2 PG (26-34); Mean Corpuscular Volume 95.1 fL (80-100); Monocytes Absolute Auto 200 /uL (0-900); Monocytes Percent Auto 4.9 % (3-14); Neutrophils Absolute Auto 2300 /uL (1500-7000); Neutrophils Percent Auto 54.6 % (50-75); Platelet Count 204 X10^3/uL (150-400); Red Blood Cell Count 3.87 X10^6/uL (4.0-5.2); Red Cell Distribution Width 13.5 % (11.6-14.8); White Blood Cell Count 4.2 X10^3/uL (4.5-11.0)
[2023-10-24 09:38] LABS: Alanine Aminotransferase 87 IU/L (<35); Albumin 3.8 g/dL (3.5-5.0); Albumin Globulin Ratio 1.7 (1.0-2.8); Alkaline Phosphatase 84 U/L (38-126); Aspartate Aminotransferase 59 IU/L (14-36); Bilirubin Total 0.4 mg/dL (0.2-1.3); Blood Urea Nitrogen 12 mg/dL (7-17); Calcium 8.9 mg/dL (8.4-10.2); Carbon Dioxide 25 mmol/L (22-32); Chloride 110 mmol/L (98-107); Cholesterol 153 mg/dL (140-199); Estimated Glomerular Filt Rate > 60 mL/min (>60); Globulin 2.2 g/dL (1.7-4.1); Glucose 82 mg/dL (80-110); HDL Cholesterol 68 mg/dL (40-60); HEMOLYSIS < 15 (0-50); LDL Cholesterol Calculated 69 mg/dL (<100); Potassium 4.4 mmol/L (3.4-5.1); Sodium 139 mmol/L (137-145); Triglycerides 80 mg/dL (35-150)
[2023-10-24 09:39] LABS: HEMOLYSIS < 15 (0-50); Iron 113 ug/dL (37-170)
[2023-10-24 09:50] LABS: Percent Iron Saturation 38 % (15-50); Total Iron Binding Capacity 298 ug/dL (265-497); Transferrin 228 mg/dL (206-381)
[2023-10-24 09:56] LABS: Vitamin D 25 Hydroxy (D3) 41.6 ng/mL (30.0-100.0)
[2023-10-24 10:47] LABS: Folate 12.8 ng/mL (2.76-20.0)
== END ==
PROVIDERS: PCP Nurse Practitioner; Referring Provider Internal Medicine Endocrinology, Diabetes & Metabolism; Visit Provider Internal Medicine Endocrinology, Diabetes & Metabolism
DX: E21.3 Hyperparathyroidism, unspecified (principal); E78.5 Hyperlipidemia, unspecified; D64.9 Anemia, unspecified; Z98.84 Bariatric surgery status; Z79.899 Other long term (current) drug therapy
CPT/HCPCS: 36415; 80053; 80061; 82306; 82746; 83540; 83550; 83970; 84100; 85025

== ENCOUNTER → 2024-01-19 09:36 | Outpatient (CLI) | payer MEDICARE, SELFPAY ==
--- NOTE | 2024-01-19 09:37 | DI.RAD.S_ITS ---
PROCEDURE: XR DEXA AXIAL SKELETON INDICATIONS: postmenopausal female COMPARISON: None. FINDINGS: Lumbar Spine: Bone mineral density 0.74 g/cm2, T score -2.8,. Left Hip: Bone mineral density is 0.59 g/cm2, T score -2.9,. Left Femoral Neck: Bone mineral density is 0.50 g/cm2, T score -3.2,. Right Hip: Bone mineral density is 0.58 g/cm2, T score -3,. Right Femoral Neck: Bone mineral density 0.49 g/cm2, T score -3.2,. Fracture Risk Calculation (when applicable): 10-year fracture risk of a major osteoporotic fracture 18% percent and of a hip fracture 5.8% percent. (T score greater or equal to -1.0 to: NORMAL) (T score from -1.1 to -2.4: OSTEOPENIA) (T score less than or equal to -2.5: OSTEOPOROSIS) IMPRESSION: Osteoporosis with fracture risk calculation as above. Follow-up guidelines as follows: Osteoporosis: Consider a repeat DEXA and Vertebral Fracture Assessment (VFA) exam in 2 years or sooner if medically necessary, to reassess this patient's status. Osteopenia: Consider a repeat DEXA in 2-3 years to reassess this patient's status, or if there is a new clinical indication. Normal: Consider a repeat DEXA in 5 years or sooner, or if there is a new clinical indication. All treatment decisions require clinical judgment and consideration of individual patient factors, including patient preferences, comorbidities, previous drug use, risk factors not captured in the FRAX model (e.g., frailty, falls, vitamin D deficiency, increased bone turnover, interval significant decline in bone density ) and possible under- or over-estimation of fracture risk by FRAX. In addition, the NOF Guide recommends that FDA-approved medical therapies be considered in postmenopausal women and men age >= 50 years with a: * Hip or vertebral (clinical or morphometric) fracture * T-score of <=-2.5 at the spine or hip * Ten-year fracture probability by FRAX of >= 3% for hip fracture or >=20% for major osteoporotic fracture. People with diagnosed cases of osteoporosis or at high risk for fracture should have regular bone mineral density tests. For patients eligible for Medicare, routine testing is allowed once every 2 years. The testing frequency can be increased to one year for patients who have rapidly progressing disease, those who are receiving or discontinuing medical therapy to restore bone mass, or have additional risk factors. Dictated by: Max Barnes M.D. on 01/19/2024 at 14:02 Approved by: Max Barnes M.D. on 01/19/2024 at 14:03
== END ==
PROVIDERS: PCP Family Medicine; Referring Provider Family Medicine; Visit Provider Family Medicine
DX: M81.0 Age-related osteoporosis without current pathological fracture (principal); Z78.0 Asymptomatic menopausal state
CPT/HCPCS: 77080

== ENCOUNTER → 2024-03-27 07:07 | Outpatient (CLI) | payer MEDICARE, SELFPAY ==
[2024-03-27 07:57] LABS: BUN Creatinine Ratio 36.1 (6-22); Blood Urea Nitrogen 22 mg/dL (7-17); Calcium 8.9 mg/dL (8.4-10.2); Carbon Dioxide 25 mmol/L (22-32); Chloride 110 mmol/L (98-107); Estimated Glomerular Filt Rate > 60 mL/min (>60); Glucose 64 mg/dL (80-110); HEMOLYSIS 15 (0-50); Phosphorous 4.3 mg/dL (2.8-4.1); Potassium 4.7 mmol/L (3.4-5.1); Sodium 139 mmol/L (137-145)
[2024-03-27 09:10] LABS: Vitamin D 25 Hydroxy (D3) 28.2 ng/mL (30.0-100.0)
[2024-03-28 08:36] LABS: Parathyroid Hormone Int 78 pg/mL (15-65)
== END ==
PROVIDERS: PCP Family Medicine; Referring Provider Internal Medicine Endocrinology, Diabetes & Metabolism; Visit Provider Internal Medicine Endocrinology, Diabetes & Metabolism
DX: E21.3 Hyperparathyroidism, unspecified (principal)
CPT/HCPCS: 36415; 80048; 82306; 83970; 84100

== ENCOUNTER 2024-04-25 12:28 | Emergency (ER) | payer MEDICARE, SELFPAY ==
[2024-04-25] VITALS (17 sets, daily range): BP systolic 84–127; BP diastolic 47–63; PULSE 63–80; RESP 14–18; TEMP 36.1–36.7; O2SAT 94–100; BMI 25.0
--- NOTE | 2024-04-25 12:41 | DI.RAD.S_ITS ---
PROCEDURE: XR HIP W PEL IF DONE RT 2V INDICATIONS: fall off horse TECHNIQUE: AP pelvis with lateral view(s) of the right hip(s). COMPARISON: None. FINDINGS: Bones: No fractures or dislocations. [id number] bilateral hip joint degeneration. Pelvic ring appears intact. No suspicious bony lesions. Soft tissues: The visualized bowel gas pattern is normal. No suspicious soft tissue calcifications. IMPRESSION: No acute osseous abnormality. If pain persists with conservative management, consider repeat x-ray in 10-14 days or cross-sectional imaging. Dictated by: Justen Oconnell M.D. on 04/25/2024 at 13:40 Approved by: Justen Oconnell M.D. on 04/25/2024 at 13:41
--- NOTE | 2024-04-25 12:41 | DI.RAD.S_ITS ---
PROCEDURE: XR FOREARM RT 2V INDICATIONS: fall off horse TECHNIQUE: 2 views of the forearm were acquired. COMPARISON: None. FINDINGS: Bones: No fractures or dislocations. No suspicious bony lesions. Soft tissues: No suspicious soft tissue calcifications or masses. IMPRESSION: No acute bony abnormality. Dictated by: Justen Oconnell M.D. on 04/25/2024 at 13:40 Approved by: Justen Oocnnell M.D. on 04/25/2024 at 13:40
--- NOTE | 2024-04-25 15:42 | PC.NURSE ---
This RNs first interaction with patient @ 1542. Patient has been out in the lobby since triage.
--- NOTE | 2024-04-25 15:45 | PC.NURSE ---
1545: Pt in lobby since triage. Pt able to partially bear weight on R-leg, hip and knee, 3/10 pain when laying in the bed. Ice pack applied. BP 99/52, ED physician aware.
--- NOTE | 2024-04-25 17:28 | ED.FALL ---
HPI - Fall General Chief Complaint: Trauma Stated Complaint: Her horse threw her into metal railing Time Seen by Provider: 04/25/24 16:45 Mode of arrival: Wheelchair History of Present Illness HPI Narrative: Patient here with family. Complains of right shoulder pain right hip pain after falling off a horse. Patient was wearing helmet. She does not think she lost consciousness. She is not on any blood thinners. Has difficulty with weight-bearing of the right hip. Able to bring right hand above her head. No numbness tingling or weakness. Denies any neck or back pain no chest pain no abdominal pain. Related Data Home Medications Medication Instructions Recorded Confirmed calcium carbonate (Calcium 600) 600 mg PO DAILY 05/10/22 04/12/24 vitamin B complex (B 1 tab PO DAILY 05/10/22 04/12/24 Complex-Vitamin B12 tablet) cholecalciferol (vitamin D3) 50 100 mcg PO DAILY 04/12/24 04/12/24 mcg (2,000 unit) capsule Previous Rx's Medication Instructions Recorded escitalopram oxalate 20 mg tablet 40 mg (2 x 20 mg) PO DAILY for 02/17/24 depressive disorder #180 tabs alprazolam 0.5 mg tablet 0.25 mg (1/2 x 0.5 mg) PO BID PRN 02/20/24 panic attacks #90 tabs doxepin 150 mg capsule 150 mg PO ONCE PM #90 caps 04/23/24 hydrocodone 5 mg-acetaminophen 325 1 tab PO Q6H PRN pain #24 tabs 04/25/24 mg tablet ondansetron 4 mg disintegrating 4 mg PO Q8H PRN nausea and 04/25/24 tablet vomiting #20 tabs Allergies Allergy/AdvReac Type Severity Reaction Status Date / Time aspirin AdvReac Severe GI BLEED Verified 04/25/24 12:36 codeine AdvReac Intermediate GI BLEED Verified 04/25/24 12:36 naproxen AdvReac Intermediate GI BLEED Verified 04/25/24 12:36 Review of Systems Review of Systems Narrative: GENERAL: Negative chills, fatigue, malaise, fever, sweats. HEENT: Negative sinus pain, ear pain, sore throat RESPIRATORY: Negative dyspnea, cough CARDIOVASCULAR: Negative chest pain, palpitations GASTROINTESTINAL: Negative nausea, vomiting, abdominal pain : Negative dysuria, frequency, hematuria MUSCULOSKELETAL: Positive muscle or bony pain SKIN: Negative rash, skin lesions NEUROLOGIC: Negative weakness, numbness ROS Unobtainable: All systems reviewed & are unremarkable except as noted in HPI and below Patient History Medical History (Updated 04/25/24 @ 19:39 by Keaton Valadez MD) Hyperlipidemia Class 1 obesity Vitamin D3 deficiency Elevated parathyroid hormone Arthritis (~2007) Surgical History Anesthesia History of knee surgery History of cholecystectomy S/P laparoscopic sleeve gastrectomy History of gastric bypass Family History Father No problems noted. Brother Cancer Brother Diabetes mellitus History of heart disease Hypertension Hyperlipidemia Mental health problem Grandfather Kidney disorder Grandmother No problems noted. Social History household members: spouse Smoking Status: Former smoker alcohol intake: current Smoking Status: Former smoker alcohol intake frequency: holidays/special occasions only Exam Narrative Exam Narrative: GENERAL: in no distress, not toxic not dyspneic HEAD: Normocephalic. Nontender face scalp. EYES: Pupils equal round ENT: Mucous membranes moist. NECK: Trachea midline. No midline tenderness step-off of the cervical spine CARDIOVASCULAR: Regular rate and rhythm RESPIRATORY: Clear to auscultation. Breath sounds equal bilaterally. No wheezes, rales, or rhonchi. GASTROINTESTINAL: Abdomen soft, non-tender EXTREMITIES: No gross deformities. Mild diffuse tenderness of the right shoulder but no drop off. Able to bring hand above her head. 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 Nontender elbow and wrist Examination right lower extremity nontender knee and ankle. Pain with attempts to flexed at the hip. No shortening or rotation of the right lower extremity. NEURO: AOx4. Clear speech SKIN: Warm and dry PSYCH: Not anxious, is cooperative Initial Vital Signs Initial Vital Signs: Vital Signs Temperature 97.0 F L 04/25/24 12:36 Pulse Rate 71 04/25/24 12:36 Respiratory Rate 14 04/25/24 12:36 Blood Pressure 127/59 L 04/25/24 12:36 Pulse Oximetry 99 04/25/24 12:36 Oxygen Delivery Method Room Air 04/25/24 12:36 Course Orders Ordered: Discontinued Medications Hydrocodone Bitart/Acetaminophen (Hydrocodone/Acet 5/325 Tablet) 2 tab PO NOW ONE Stop: 04/25/24 17:26 Last Admin: 04/25/24 17:58 Dose: 2 tab Documented By: SUDHEER Lorazepam (Lorazepam 2 Mg/Ml Inj) 1 mg IV Q2HR RENETTA Ondansetron HCl (Ondansetron 4 Mg Odt) 4 mg SL NOW ONE Stop: 04/25/24 17:26 Last Admin: 04/25/24 17:59 Dose: 4 mg Documented By: SUDHEER Vital Signs Vital signs: Vital Signs - 8 hr 04/25/24 12:36 04/25/24 15:43 04/25/24 15:44 Temperature 97.0 F L Pulse Rate 71 67 Respiratory Rate 14 Blood Pressure 127/59 L 99/52 L Pulse Oximetry 99 94 Oxygen Delivery Method Room Air 04/25/24 15:44 04/25/24 16:00 04/25/24 16:00 Temperature Pulse Rate 64 63 Respiratory Rate Blood Pressure 103/56 L Pulse Oximetry 94 99 Oxygen Delivery Method 04/25/24 16:30 04/25/24 16:30 04/25/24 17:00 Temperature Pulse Rate 70 Respiratory Rate Blood Pressure 113/59 L 106/56 L Pulse Oximetry 100 Oxygen Delivery Method 04/25/24 17:00 04/25/24 17:30 04/25/24 17:30 Temperature Pulse Rate 75 73 Respiratory Rate Blood Pressure 117/58 L Pulse Oximetry 100 98 Oxygen Delivery Method 04/25/24 18:00 04/25/24 18:00 04/25/24 18:30 Temperature Pulse Rate 80 65 Respiratory Rate Blood Pressure 117/63 120/60 Pulse Oximetry 99 98 Oxygen Delivery Method MDM - Fall Imaging Data Extremity x-ray #1: Radiologist's Impression: [address] [address] XRay Report Signed Patient: Nedra Méndez MR#: [id number] : 1955 Acct:[id number] Age/Sex: 68 / F Date of Service: 04/25/24 Loc: ED Accession Number: [id number] Procedure: XR hip w pel if done RT 2V Ordering Provider: Keaton Valadez MD PROCEDURE: XR HIP W PEL IF DONE RT 2V INDICATIONS: fall off horse TECHNIQUE: AP pelvis with lateral view(s) of the right hip(s). COMPARISON: None. FINDINGS: Bones: No fractures or dislocations. [id number] bilateral hip joint degeneration. Pelvic ring appears intact. No suspicious bony lesions. Soft tissues: The visualized bowel gas pattern is normal. No suspicious soft tissue calcifications. IMPRESSION: No acute osseous abnormality. If pain persists with conservative management, consider repeat x-ray in 10-14 days or cross-sectional imaging. Dictated by: Justen Oconnell M.D. on 04/25/2024 at 13:40 Approved by: Justen Oconnell M.D. on 04/25/2024 at 13:41 Extremity x-ray #2: Radiologist's Impression: [address] [address] XRay Report Signed Patient: Nedra Méndez MR#: [id number] : 1955 Acct:[id number] Age/Sex: 68 / F Date of Service: 04/25/24 Loc: ED Accession Number: [id number] Procedure: XR forearm RT 2V Ordering Provider: Keaton Valadez MD PROCEDURE: XR FOREARM RT 2V INDICATIONS: fall off horse TECHNIQUE: 2 views of the forearm were acquired. COMPARISON: None. FINDINGS: Bones: No fractures or dislocations. No suspicious bony lesions. Soft tissues: No suspicious soft tissue calcifications or masses. IMPRESSION: No acute bony abnormality. Dictated by: Justen Oconnell M.D. on 04/25/2024 at 13:40 Approved by: Justen Oconnell M.D. on 04/25/2024 at 13:40 CT scan - head: Radiologist's Impression: [address] [address] [address] Scan Report Signed Patient: Nedra Méndez MR#: [id number] : 1955 Acct:[id number] Age/Sex: 68 / F Date of Service: 04/25/24 Loc: ED Accession Number: [id number] Procedure: CT head/brain wo con Ordering Provider: Keaton Valadez MD PROCEDURE: CT HEAD/BRAIN WO CON INDICATIONS: Fall/injury TECHNIQUE: Noncontrast 4.5 mm thick angled axial sections acquired from the foramen magnum to the vertex, with coronal and sagittal reformats. For radiation dose reduction, the following was used: automated exposure control, adjustment of mA and/or kV according to patient size. COMPARISON: None. FINDINGS: Image quality: Diagnostic CSF spaces: Basal cisterns are patent. Lateral ventricles are symmetric. Volume: Vascular calcifications. Periventricular white matter disease is commonly seen with chronic microangiopathy. Volume loss is present. These findings are mild Brain: No intracranial hemorrhage. Thapa-white differentiation is grossly maintained. Craniofacial structures: No significant paranasal sinus opacity. IMPRESSION: No acute intracranial pathology. Dictated by: Max Barnes M.D. on 04/25/2024 at 18:52 Approved by: Max Barnes M.D. on 04/25/2024 at 18:53 CT chest abdomen and pelvis: Radiologist's Impression: [address] [address] [address] Scan Report Signed Patient: Nedra Méndez MR#: [id number] : 1955 Acct:[id number] Age/Sex: 68 / F Date of Service: 04/25/24 Loc: ED Accession Number: [id number] Procedure: CT chest abd pel wo con Ordering Provider: Keaton Valadez MD PROCEDURE: CT CHEST ABD PEL WO CON INDICATIONS: Fall/injury/right side pain TECHNIQUE: After the administration of oral contrast, 5 mm thick sections acquired from the lung apices to the symphysis pubis. 5 mm thick coronal and sagittal reformats acquired, with additional 7 mm coronal MIP reformats through the lungs. For radiation dose reduction, the following was used: automated exposure control, adjustment of mA and/or kV according to patient size. COMPARISON: None. FINDINGS: Image quality: Diagnostic Lungs and pleura: No pneumothorax or hemothorax. Scattered scarring and atelectasis. No suspicious focal pulmonary nodule. No pleural effusions or dense airspace disease. No pulmonary contusions. Mediastinum, heart, and esophagus: On this noncontrast study, no mediastinal hematoma is seen. Mild wall thickening of the distal esophagus with small hiatal hernia and postsurgical changes. Trace pericardial effusion. Coronary calcifications. Heart size is at the upper limit of normal. No pathologic lymphadenopathy by size criteria. Chest wall and thyroid: Unremarkable Liver: On this noncontrast study, no capsular hematoma is seen. Solid organs are not well assessed without IV contrast Gallbladder and biliary system: Cholecystectomy clips. CBD measures 9-10 mm, which is mildly ectatic. Correlate LFTs. This may be related to postsurgical state Pancreas: No ductal dilation Spleen: No capsular hematoma identified. Adrenals: No discrete nodules Kidneys: No capsular hematoma. No obstructing calcified stone. No contour deforming mass. Right mid kidney 1.4 cm angiomyolipoma Vessels and lymph nodes: No abdominal aortic aneurysm. No pathologic lymphadenopathy by size criteria. Bowel and peritoneum: Postsurgical changes of the stomach. There is no hemoperitoneum. No small bowel obstruction. There is moderate fecal loading. Body wall: Unremarkable Pelvis: Bladder is unremarkable. Reproductive organs are unremarkable on limited CT evaluation Bones: Pelvic ring appears intact. No acute fracture or traumatic subluxation identified of the thoracolumbar spine. There are age-indeterminate fractures of the left anterior lower ribs. IMPRESSION: No acute displaced fracture or dislocation identified. No height loss or traumatic subluxation of the thoracolumbar spine. Age-indeterminate possibly nonacute fractures of the left lower anterior ribs, correlate with location of tenderness. No acute intrathoracic or intra-abdominal traumatic abnormality on this noncontrast study. Other findings above. Dictated by: Max Barnes M.D. on 04/25/2024 at 18:55 Approved by: Max Barnes M.D. on 04/25/2024 at 19:03 CT - cervical spine: Radiologist's Impression: [place] [address] CT Scan Report Signed Patient: Nedra Méndez MR#: [id number] : 1955 Acct:[id number] Age/Sex: 68 / F Date of Service: 04/25/24 Loc: ED Accession Number: [id number] Procedure: CT cervical spine wo con Ordering Provider: Keaton Valadez MD PROCEDURE: CT CERVICAL SPINE WO CON INDICATIONS: Fall/injury TECHNIQUE: Noncontrast 3 mm thick sections acquired from the skull base to the T4 level. Sagittal and coronal reformats were then constructed. For radiation dose reduction, the following was used: automated exposure control, adjustment of mA and/or kV according to patient size. COMPARISON: None. FINDINGS: Image quality: Diagnostic Bones: [id number] cervical spondylosis with disc space height loss, osteophytes, and arthropathy. Vertebral body heights are well maintained. No traumatic subluxation. Soft tissues: No apical pneumothorax. No pathologic prevertebral soft tissue swelling IMPRESSION: No displaced fracture or traumatic subluxation. [id number]-[id number]-[id number] cervical spondylosis. If there is high concern for further derangement, consider MRI evaluation. Dictated by: Max Barnes M.D. on 04/25/2024 at 18:53 Approved by: Max Barnes M.D. on 04/25/2024 at 18:54 [facility] Narrative Medical decision making narrative: Patient here with family. Complains of right shoulder pain right hip pain after falling off a horse. Patient was wearing helmet. She does not think she lost consciousness. She is not on any blood thinners. Has difficulty with weight-bearing of the right hip. Able to bring right hand above her head. No numbness tingling or weakness. Denies any neck or back pain no chest pain no abdominal pain. After history and exam [place] head cervical spine chest abdomen pelvis, exam is reassuring. No blood work indicated at this time. Patient is not on any blood thinners. [facility] Medical records reviewed: No recent visit for this complaint Differential considered: Includes but not limited to shoulder fracture hip fracture pelvic fracture Imaging studies independently reviewed: X-ray right hip and forearm no acute finding CT head CT cervical spine CT chest abdomen pelvis no acute finding Consultations: None indicated at this time Treatments: [place] Zofran Re-evaluations: 7:30 p.m.. The patient up and using walker to the bathroom. Pain is controlled. We have a walker we will send her home with. Reviewed results with patient and . No fracture seen at this time. Pain medication prescription will be provided. Referral for Orthopedics will be provided. Return precautions reviewed. She desires discharge home. Discussion: Appropriate for discharge home exam is reassuring. CT imaging reassuring. Patient up and using walker. Walker will be sent home with her. Orthopedic referral provided. She desires discharge home. Pain is controlled. Diagnosis: Right shoulder contusion right hip contusion Discharge Plan Departure Patient Disposition: Home Clinical Impression: Contusion of hip, right Qualifiers: Encounter type: initial encounter Qualified Code(s): S70.01XA - Contusion of right hip, initial encounter Contusion of right shoulder Qualifiers: Encounter type: initial encounter Qualified Code(s): S40.011A - Contusion of right shoulder, initial encounter Instructions: DI for Contusion, DI for Trauma Activity Restrictions/Additional Instructions: No driving operating machinery today or when taking prescribed pain medication as you have been given pain medication. Your CT scan imaging x-ray imaging are reassuring. However return if worse if any questions or concerns if not improving in 7 days-10 days for repeat imaging/possible MRI for your injured areas. Please call provided orthopedic office tomorrow for follow up within a week. Use provided walker for ambulating. Return if worse if any questions or concerns Prescriptions: New hydrocodone-acetaminophen 5-325 mg tablet 1 tab PO Q6H PRN (Reason: pain) Qty: 24 0RF ondansetron 4 mg tablet,disintegrating 4 mg PO Q8H PRN (Reason: nausea and vomiting) Qty: 20 0RF No Action escitalopram oxalate 20 mg tablet 40 mg PO DAILY Qty: 180 3RF alprazolam 0.5 mg tablet 0.25 mg PO BID PRN (Reason: panic attacks) Qty: 90 2RF doxepin 150 mg capsule 150 mg PO ONCE PM Qty: 90 0RF cholecalciferol (vitamin D3) 50 mcg (2,000 unit) capsule 100 mcg PO DAILY calcium carbonate [Calcium 600] 600 mg calcium (1,500 mg) tablet 600 mg PO DAILY vitamin B complex [B Complex-Vitamin B12] Tablet 1 tab PO DAILY Referrals: Britni Dang MD [Physician] - Carmelo Morales MD [Primary Care Provider] - Stand Alone Forms: Patient Portal/API/Survey
[2024-04-25] MEDS: HYDROCODONE/ACET 5/325 TABLET 2 TAB PO (17:58)
[2024-04-25] MEDS: ONDANSETRON 4 MG ODT SL (17:59)
--- NOTE | 2024-04-26 11:20 | PC.NURSE ---
Called and left message for pt checking on her status. No answer, left message on confirmed cell. Encouraged to f/u as needed and indicated and return for any worsening symptoms. Left phone number of ED as call back number.
--- NOTE | 2024-04-26 15:59 | PC.NURSE ---
Pt was hypotensive,Dr Cai aware. Pt ambulated to bathroom using a walker with steady gait and no dizziness. Pt able to take PO fluids. Dr Cai wanted pt to drink a couple glasses of water and then reasses her bp prior to discharged.
== END 2024-04-25 20:34 | disposition home or self-care (01) ==
PROVIDERS: Emergency Provider Emergency Medicine; PCP Family Medicine
DX: S70.01XA Contusion of right hip, initial encounter (principal); S40.011A Contusion of right shoulder, initial encounter; S09.90XA Unspecified injury of head, initial encounter; M25.551 Pain in right hip; R51.9 Headache, unspecified; V80.010A Animal-rider injured by fall from or being thrown from horse in noncollision accident, initial encounter
CPT/HCPCS: 70450; 71250; 72125; 73090; 73502; 74176; 99284

== ENCOUNTER → 2024-04-30 08:26 | Outpatient (CLI) | payer MEDICARE, SELFPAY ==
[2024-04-30 10:03] LABS: Add Manual Diff / Slide Review NO; Basophils Absolute Auto 0 /uL (0-100); Basophils Percent Auto 0.6 % (0-2); Eosinophils Absolute Auto 0 /uL (0-450); Eosinophils Percent Auto 0.9 % (2-4); Hematocrit 36.4 % (36-46); Hemoglobin 12.3 g/dL (12.0-16.0); Lymphocytes Absolute Auto 1600 /uL (1100-4500); Lymphocytes Percent Auto 34.6 % (25-40); Mean Corpuscular HGB Conc 33.6 % (30-36); Mean Corpuscular Hemoglobin 32.7 PG (26-34); Mean Corpuscular Volume 97.3 fL (80-100); Monocytes Absolute Auto 300 /uL (0-900); Monocytes Percent Auto 5.7 % (3-14); Neutrophils Absolute Auto 2800 /uL (1500-7000); Neutrophils Percent Auto 58.2 % (50-75); Platelet Count 224 X10^3/uL (150-400); Red Blood Cell Count 3.74 X10^6/uL (4.0-5.2); Red Cell Distribution Width 13.6 % (11.6-14.8); White Blood Cell Count 4.8 X10^3/uL (4.5-11.0)
== END ==
PROVIDERS: PCP Family Medicine; Referring Provider Family Medicine; Visit Provider Family Medicine
DX: R61 Generalized hyperhidrosis (principal)
CPT/HCPCS: 36415; 85025

== ENCOUNTER → 2024-10-16 07:20 | Outpatient (CLI) | payer MEDICARE, SELFPAY ==
[2024-10-16 08:20] LABS: Blood Urea Nitrogen 12 mg/dL (7-17); Calcium 8.6 mg/dL (8.4-10.2); Carbon Dioxide 24 mmol/L (22-32); Chloride 110 mmol/L (98-107); Estimated Glomerular Filt Rate > 60 mL/min (>60); Glucose 84 mg/dL (70-99); HEMOLYSIS < 15 (0-50); Phosphorous 4.2 mg/dL (2.8-4.1); Potassium 4.1 mmol/L (3.4-5.1); Sodium 139 mmol/L (137-145)
[2024-10-16 08:36] LABS: Vitamin D 25 Hydroxy (D3) 44.8 ng/mL (30.0-100.0)
== END ==
PROVIDERS: PCP Family Medicine; Referring Provider Internal Medicine Endocrinology, Diabetes & Metabolism; Visit Provider Internal Medicine Endocrinology, Diabetes & Metabolism
DX: E21.3 Hyperparathyroidism, unspecified (principal); E55.9 Vitamin D deficiency, unspecified
CPT/HCPCS: 36415; 80048; 82306; 83970; 84100

== ENCOUNTER → 2025-02-09 10:22 | Outpatient (CLI) | payer MEDICARE, SELFPAY ==
--- NOTE | 2025-02-09 10:22 | DI.MG.S_ITS ---
MM screening mammo BI: 02/09/2025. BI-RADS: 2 CLINICAL: 69-year old female for bilateral screening mammogram. Tyrer-Cuzick lifetime risk of 5.1%. No personal or first-degree family history of breast cancer. Current reported family history of breast cancer: paternal aunt's daughter. The patient had a prior right breast biopsy. PRIOR EXAMS 05/16/2023, 03/31/2022, 03/28/2021, 04/03/2020, MAMMOGRAPHY TECHNIQUE: 2D and 3D (tomosynthesis) digital mammographic views obtained, with additional images as needed for full coverage. Current study was also evaluated with a Computer Aided Detection (CAD) system. DENSITY B. There are scattered areas of fibroglandular density. MAMMOGRAPHY FINDINGS Bilateral: Typically-benign vascular calcifications noted. IMPRESSION: * No evidence of malignancy with benign findings. RECOMMENDATIONS Bilateral * Annual screening mammography. OVERALL ASSESSMENT CATEGORY BI-RADS-2: Benign. The [employer] recommends annual screening mammography beginning at age 40 for women with average risk of breast cancer. ELECTRONICALLY SIGNED: Hilton Carter M.D. on 02/11/2025 at 06:47:55 AM PT Interpreting Station ID: [id number]
== END ==
LOC: MAMMO 10:22
PROVIDERS: PCP Family Medicine; Referring Provider Family Medicine; Visit Provider Family Medicine
DX: Z12.31 Encounter for screening mammogram for malignant neoplasm of breast (principal); Z80.3 Family history of malignant neoplasm of breast
CPT/HCPCS: 77063; 77067